=== PATIENT | male | born 1995 | race Two or more races ===

== ENCOUNTER 2019-06-05 17:19 | Inpatient (IN) | payer MEDICAID ==
[~2019-06-05] VITALS: Ht 175.3 cm; Wt 98.4 kg
--- NOTE | 2019-06-05 17:20 | NUR ---
ED Nurse Note: patient brought into ED from home by ambulance RA 69 due to unknown drug overdose. per ems, narcan was given IM 2mg and another 2mg of Narcan was given IVP. patient responded. upon arrival patient's pupils were very dilated, patient on a director cardiac, patient unable to follow any directions at this time. patient placed on a 15L nonrebreather.
[2019-06-05 17:47] VITALS: BP 104/53
[2019-06-05] MEDS ORDERED: Naloxone 1mg/ml 2ml IVP ONE (18:00)
[2019-06-05 18:20] LABS: EOSINOPHILS % (AUTO) 0.8 % (0.0-3.0); HEMATOCRIT 50.5 % (42.0-52.0); HEMOGLOBIN 15.8 G/DL (14.2-18.0); LYMPHOCYTES % (AUTO) 31.3 % (20.0-45.0); MEAN CORPUSCULAR VOLUME 94 FL (80-99); MONOCYTES % (AUTO) 2.2 % (1.0-10.0); NEUTROPHILS % (AUTO) 64.7 % (45.0-75.0); PLATELET COUNT 290 K/UL (150-450); RED BLOOD COUNT 5.39 M/UL (4.70-6.10); RED CELL DISTRIBUTION WIDTH 12.6 % (11.6-14.8); WHITE BLOOD COUNT 13.1 K/UL (4.8-10.8)
[2019-06-05 18:32] LABS: ANION GAP 19 mmol/L (5-15); BLOOD UREA NITROGEN 17 mg/dL (7-18); CALCIUM 8.3 MG/DL (8.5-10.1); CARBON DIOXIDE 17 MMOL/L (21-32); CHLORIDE 104 MMOL/L (98-107); CREATININE 1.4 MG/DL (0.55-1.30); POTASSIUM 3.5 MMOL/L (3.5-5.1); SODIUM 140 MMOL/L (136-145)
[2019-06-05 18:46] LABS: ALANINE AMINOTRANSFERASE 114 U/L (12-78); ALBUMIN 3.6 G/DL (3.4-5.0); ALKALINE PHOSPHATASE 96 U/L (46-116); ASPARTATE AMINO TRANSFERASE 83 U/L (15-37); BILIRUBIN,TOTAL 0.5 MG/DL (0.2-1.0)
--- NOTE | 2019-06-05 19:06 | NUR ---
HAND-OFF: Report given to Yael JIN.
[2019-06-05 19:08] VITALS: BP 138/118
--- NOTE | 2019-06-05 19:08 | NUR ---
ED Nurse Note: mother at bedside. patient's O2 sat is 97% on 15L nonrebreather.
[2019-06-05 19:21] VITALS: BP 142/128
--- NOTE | 2019-06-05 19:22 | NUR ---
ED Nurse Note: Mother and sister at bedside.
--- NOTE | 2019-06-05 19:22 | NUR ---
ED Nurse Note: Reassessed patient, patient stable no acute distress at this time.
--- NOTE | 2019-06-05 19:33 | NUR ---
ED Nurse Note: Reassesed patient, patient reported using Fentanyl unknown dose intranasal. Denies SI/HI.
[2019-06-05 20:22] VITALS: BP 128/71
--- NOTE | 2019-06-05 21:20 | NUR ---
ED Nurse Note: Per RT, bipap settings 12/5 FiO2 at 40%
--- NOTE | 2019-06-05 21:21 | Diagnostic Imaging Report ---
Indication: Shortness of breath Technique: One view of the chest Comparison: none Findings: There is diffuse bilateral mostly airspace disease and a nodular pattern bilaterally. The pleural spaces are grossly clear. The heart size is normal. The bones are unremarkable Impression: Diffuse pulmonary airspace disease in a nodular pattern. Most likely represents pneumonia, pulmonary edema also possible. This agrees with the preliminary interpretation provided overnight by [facility] teleradiology service.
--- NOTE | 2019-06-05 21:27 | NUR ---
RESPIRATORY NOTE: Pt in ED placed on BiPAP post ABG per MD Marbin. Pt came in for overdose, on a 100% NRB. Pt placed on BiPAP 03/30, backup rate 14, 100%. Pt on a Facial mask, skin intact, no redness/breakdowns noted. Foam tape applied on pt's nosebridge/cheeks/chin to prevent mask irritations. Pt is lethargic/drowsy most of the time, arousable & responds/follows commands. B/S beverly. rales, nonproductive cough. Family present at bedside. BiPAP plugged into red outlet, alarms on & audible. Pt tolerating well. Will continue to monitor pt.
--- NOTE | 2019-06-05 21:29 | NUR ---
ED Nurse Note: Zithromax and Zosyn unknown compatibility, Zosyn started and Zithromax held until Zosyn is completed.
[2019-06-05] MEDS ORDERED: Azithromycin 500 MG in NS 275 ML IV ONE (21:30)
[2019-06-05] MEDS ORDERED: Piperacillin/Tazobactam 3.375 GM in NS 110 ML IVPB ONE (21:30)
--- NOTE | 2019-06-05 21:52 | NUR ---
ED Nurse Note: Lactic redrawn and sent to lab.
--- NOTE | 2019-06-05 22:06 | Emergency Room Report ---
History of Present Illness General Chief Complaint: Overdose Source: Patient Present Illness HPI 23-year-old male presents ED status post overdose. Family called 911. States that he took multiple drugs today. Patient unable to tell us what he took. Was given Narcan by EMS. Is slightly more awake but lethargic. Is unable to provide any additional history at this time. Family denies SI. Denies psychiatric history. No other aggravating relieving factors. Denies any other associated symptoms Allergies: Coded Allergies: No Known Allergies (Unverified , 06/05/19) Patient History Past Medical History: none Past Surgical History: none Pertinent Family History: none Social History: Reports: drug use; Denies: smoking, alcohol use Immunizations: UTD Reviewed Nursing Documentation: PMH: Agreed; PSxH: Agreed Nursing Documentation-PMH Past Medical History: No History, Except For Review of Systems All Other Systems: limited Physical Exam Vital Signs Date Time Temp Pulse Resp B/P (MAP) Pulse Ox O2 Delivery O2 Flow Rate FiO2 06/05/19 17:15 110 16 144/81 (102) 98 Room Air 06/05/19 17:47 15.0 06/05/19 21:25 40 Sp02 EP Interpretation: reviewed, normal General Appearance: mild distress, lethargic Head: normocephalic Eyes: bilateral eye normal inspection, bilateral eye PERRL ENT: hearing grossly normal, normal pharynx, no angioedema, normal voice Neck: full range of motion, supple/symm/no masses Respiratory: crackles Cardiovascular #1: no edema, tachycardia Gastrointestinal: normal bowel sounds, non tender, soft, non-distended, no guarding, no rebound Rectal: deferred Genitourinary: no CVA tenderness Musculoskeletal: normal inspection Neurologic: other - lethargic Psychiatric: other - lethargic Skin: other - see nursing skin notes Lymphatic: normal inspection Procedures Critical Care Time Critical Care Time i. I feel this is a highly complex case requiring extensive working including EKG/Rhythm strip, Xray/CT/US, Blood/urine lab work, repeat exams while in ED, and administration of strong opiates/narcotics for pain control, admission to hospital or close patient follow up. Total time: 60 min bedside evaluation and treatment excludes procedures (EKG). Reason for critical care: Pulmonary edema, respiratory distress, overdose Possible complications: hypotension, hypertension, [place], shock, arrhythmias, metabolic acidosis, end organ damage, respiratory failure. Interventions: Labs, EKG, chest x-ray, IV fluids, Narcan, ABG, BiPAP Course: Patient presenting status post overdose. Drug screen positive for cocaine and THC. Given Narcan which improved respiratory status and O2 sats. Patient remains tachypneic. Crackles on exam. Chest x-ray shows pulmonary edema. ABG shows no hypercapnia or hypoxia. Placed on BiPAP. Respiratory status improving. Consultations: nursing staff, EMS, family Performed by: Dr Zazueta Tolerated well condition = critical j. because of unstable vital signs this patient had a condition that could potentially threaten life or limb. I feel this is a critical patient who required my full attention while patient was considered critical. Total Critical Care Time excluding procedures was greater than 60 minutes Medical Decision Making Diagnostic Impression: Primary Impression: Drug overdose Qualified Codes: T50.901A - Poisoning by unspecified drugs, medicaments and biological substances, accidental (unintentional), initial encounter Additional Impression: Pulmonary edema Qualified Codes: J81.0 - Acute pulmonary edema ER Course Hospital Course 23-year-old male presents to ED with altered mental status. overdose on medications Differential diagnoses include: Alcohol intoxication, psychosis, drug abuse Clinical course She placed on stretcher. On child monitor. After initial history and physical ordered labs, IV fluids, EKG, CXR, narcan Labs reviewed-electrolytes okay, noted leukocytosis, hemoglobin/hematocrit stable, Utox + cocaine and THC Patient given Narcan which improved respiratory status temporarily EKG - sinus tachycardia no acute ischemic changes interpreted by me CXR - pulmonary edema Remains tachypneic, lethargic. Started on BiPAP. Broad-spectrum antibiotics given. case discussed with Dr. Sauer and he agreed to accept the patient to his service for further care and support i. I feel this is a highly complex case requiring extensive working including EKG/Rhythm strip, Xray/CT/US, Blood/urine lab work, repeat exams while in ED, and administration of strong opiates/narcotics for pain control, admission to hospital or close patient follow up. Diagnosis - drug overdose, pulmonary edema Admitted to SDU in critical condition Labs Test 06/05/19 17:30 06/05/19 20:44 06/05/19 21:00 White Blood Count 13.1 K/UL (4.8-10.8) Red Blood Count 5.39 M/UL (4.70-6.10) Hemoglobin 15.8 G/DL (14.2-18.0) Hematocrit 50.5 % (42.0-52.0) Mean Corpuscular Volume 94 FL (80-99) Mean Corpuscular Hemoglobin 29.3 PG (27.0-31.0) Mean Corpuscular Hemoglobin Concent 31.3 G/DL (32.0-36.0) Red Cell Distribution Width 12.6 % (11.6-14.8) Platelet Count 290 K/UL (150-450) Mean Platelet Volume 9.4 FL (6.5-10.1) Neutrophils (%) (Auto) 64.7 % (45.0-75.0) Lymphocytes (%) (Auto) 31.3 % (20.0-45.0) Monocytes (%) (Auto) 2.2 % (1.0-10.0) Eosinophils (%) (Auto) 0.8 % (0.0-3.0) Basophils (%) (Auto) 1.0 % (0.0-2.0) Sodium Level 140 MMOL/L (136-145) Potassium Level 3.5 MMOL/L (3.5-5.1) Chloride Level 104 MMOL/L (98-107) Carbon Dioxide Level 17 MMOL/L (21-32) Anion Gap 19 mmol/L (5-15) Blood Urea Nitrogen 17 mg/dL (7-18) Creatinine 1.4 MG/DL (0.55-1.30) Estimat Glomerular Filtration Rate > 60 mL/min (>60) Glucose Level 254 MG/DL (74-106) Calcium Level 8.3 MG/DL (8.5-10.1) Total Bilirubin 0.5 MG/DL (0.2-1.0) Aspartate Amino Transf (AST/SGOT) 83 U/L (15-37) Alanine Aminotransferase (ALT/SGPT) 114 U/L (12-78) Alkaline Phosphatase 96 U/L (46-116) Total Protein 7.2 G/DL (6.4-8.2) Albumin 3.6 G/DL (3.4-5.0) Globulin 3.6 g/dL Albumin/Globulin Ratio 1.0 (1.0-2.7) Salicylates Level 1.4 ug/mL (2.8-20) Urine Opiates Screen Negative (NEGATIVE) Acetaminophen Level < 2 MCG/ML (10-30) Urine Barbiturates Screen Negative (NEGATIVE) Phencyclidine (PCP) Screen Negative (NEGATIVE) Urine Amphetamines Screen Negative (NEGATIVE) Urine Benzodiazepines Screen Negative (NEGATIVE) Urine Cocaine Screen Positive (NEGATIVE) Urine Marijuana (THC) Screen Positive (NEGATIVE) Serum Alcohol < 3 mg/dL Arterial Blood pH 7.293 (7.350-7.450) Arterial Blood Partial Pressure CO2 42.0 mmHg (35.0-45.0) Arterial Blood Partial Pressure O2 134.9 mmHg (75.0-100.0) Arterial Blood HCO3 19.9 mmol/L (22.0-26.0) Arterial Blood Oxygen Saturation 98.4 % (95-100) Arterial Blood Base Excess -6.4 (-2-2) Todd Test Positive Lactic Acid Level 2.30 mmol/L (0.4-2.0) Pro-B-Type Natriuretic Peptide 57 pg/mL (0-125) EKG Diagnostic Results Rate: tachycardiac Rhythm: NSR ST Segments: no acute changes ASA given to the pt in ED: No Rhythm Strip Diag. Results EP Interpretation: yes Rhythm: NSR, no PVC's, no ectopy Chest X-Ray Diagnostic Results Chest X-Ray Diagnostic Results : Chest X-Ray Ordered: Yes # of Views/Limited/Complete: 1 View Indication: Shortness of Breath EP Interpretation: Yes Interpretation: no pneumothorax, other - pulmonary edema Impression: Other - pulmonary edema Electronically Signed by: Electronically signed by Cullen Zazueta MD Last Vital Signs Date Time Temp Pulse Resp B/P (MAP) Pulse Ox O2 Delivery O2 Flow Rate FiO2 06/05/19 21:25 83 29 100 40 06/05/19 20:22 128/71 Non-Rebreather 15.0 Status: improved Disposition: ADMITTED INPATIENT Condition: Serious Referrals: NOT CHOSEN YASMIN/,REFERRING (PCP) Cullen Zazueta MD Jun 05, 2019 22:06
--- NOTE | 2019-06-05 22:30 | NUR ---
NURSE NOTES: Received report from DAVIN Liz. Patient is on his way up to the floor.
--- NOTE | 2019-06-05 22:34 | NUR ---
ED Nurse Note: Report given to DAVIN Tafoya in SDU.
--- NOTE | 2019-06-05 22:45 | NUR ---
NURSE NOTES: Received patient from ED. Patient is aaox4, vss, with no acute distress. laboratory monitor on, suction at bedside, Bipap 12/5 Fio2 of 40% and IV site on right forearm and left AC. Skin is intact. Family members at bedside. Patient is short of breath while hyperventilating, although he can control his breathing for a short period. Bed at its lowest position, call light in reach and x3 bed rails are up. Will continue to monitor.
--- NOTE | 2019-06-05 22:45 | NUR ---
ED Nurse Note: Patient transported via gurney on ACLS protocol and customs verifier accompanied by 1 RN, RT, and automatic equipment technician in stable condition.
[2019-06-06] VITALS: BP 130/69
--- NOTE | 2019-06-06 02:16 | NUR ---
NURSE NOTES: Patient is sleeping with no acute distress. Mother and sister at bedside.
[2019-06-06 04:00] VITALS: BP 123/75
[2019-06-06 05:35] LABS: HEMATOCRIT 42.2 % (42.0-52.0); HEMOGLOBIN 14.9 G/DL (14.2-18.0); MEAN CORPUSCULAR VOLUME 87 FL (80-99); PLATELET COUNT 191 K/UL (150-450); RED BLOOD COUNT 4.85 M/UL (4.70-6.10); RED CELL DISTRIBUTION WIDTH 11.3 % (11.6-14.8); WHITE BLOOD COUNT 14.6 K/UL (4.8-10.8)
[2019-06-06 05:36] LABS: ANION GAP 11 mmol/L (5-15); BLOOD UREA NITROGEN 12 mg/dL (7-18); CALCIUM 8.5 MG/DL (8.5-10.1); CARBON DIOXIDE 22 MMOL/L (21-32); CHLORIDE 107 MMOL/L (98-107); CREATININE 0.9 MG/DL (0.55-1.30); POTASSIUM 4.1 MMOL/L (3.5-5.1); SODIUM 140 MMOL/L (136-145)
[2019-06-06] MEDS: Piperacillin/Tazobactam 3.375 GM in NS 110 ML IVPB SCH ×3 (05:59→22:09)
--- NOTE | 2019-06-06 07:19 | NUR ---
RESPIRATORY NOTE: received pt on bipap with current settings. pt using partial facial mask with foam barrier in place. no visible redness or skin irritation while on bipap. pt able to wake when shaken and able to follow commands. made know that ABG will be taken. family/friend at bedside. will cont to monitor.
--- NOTE | 2019-06-06 07:20 | NUR ---
NURSE NOTES: RECEIVED BED SIDE REPORT FROM EVELIN JIN STAFF OF POWER MACHINE OPERATOR. RECEIVED PT WITH HOB ELEVATED 45 DEGREE ,USING BIPAP 12/5 ,40% FIO2, O2 SAT 98%. ABG ,S DONE PER M.D ORDERS. ABG,S RESULT REPORTED TO DR ORDOÑEZ ,PT PLACED ON O2 @ 2 L/MINTS VIA N/C PER M.D ORDERS. PT FAMILY AT BED SIDE SEEMS VERY SUPPORTIVE. FULL BODY ASSESSMENT DONE.H.L ON RT FA G# 18 INTACT AND H.L ON LT AC G# 20 INTACT.NO ACUTE DISTRESS NOTED AT THIS TIME . WILL CONT TO MONITOR.
--- NOTE | 2019-06-06 07:33 | NUR ---
HAND-OFF: Report given to DAVIN Rice.
[2019-06-06 08:00] VITALS: BP 128/74
--- NOTE | 2019-06-06 09:12 | NUR ---
RADIOLOGY DEPT., CHEST X-RAY DONE.-P.DYE
[2019-06-06] MEDS: Heparin 5000 units/ml inj SUBQ SCH ×2 (09:34→21:26)
--- NOTE | 2019-06-06 10:30 | Diagnostic Imaging Report ---
Indication: Shortness of breath Technique: One view of the chest Comparison: 06/05/2019 Findings: Interim slight worsening of bilateral diffuse interstitial and airspace disease, with increasingly dense consolidation diffusely bilaterally. The heart remains upper limits of normal in size. The pleural spaces remain clear Impression: Interim slight worsening of bilateral diffuse infiltrates, over one day
--- NOTE | 2019-06-06 11:41 | NUR ---
METAL POLISHER NOTE SW met w/ pt to discuss substance abuse issue. Pt presents as A&O4x and cooperative. Pt resides w/ his family at [address], [place] [address]. Pt is single, never and has no children. Pt works as a product/device technologist. Pt started abusing substances(Fentanyl and THC) since December 2018. Pt is willing to cease substance abuse but pt is not interested in inpatient/outpatient rehab program. SW encouraged pt to receive substance abuse rehab resource in case if he reconsiders his options. Pt verbalized understanding. Emergency contacts provided: Fely Cortez (mother) [phone] and Vero Collins (sister) [phone]. Pt reports he receives sufficient family and friend support. Pt plans to return home upon DC. Pt denies hx of mental illness but he is willing to receive mental health counseling upon DC. Pt denies hx of SA and current SI/HI. SW provided a substance abuse rehab resource and mental health resource including MHCs and hotlines. Pt does not share any other concern/issue/needs at this time. SW to F/U as needed. Signed: 06/06/19 at 1149 by TYE ANTHONY <Co-Signature Required>
--- NOTE | 2019-06-06 11:50 | NUR ---
NURSE NOTES: 2ND ABG,S DONE.PLACED A TELEPHONE CALL TO DR ORDOÑEZ AND REPORTED ABG,S RESULTS.NO NEW ORDERS NOTED AT THIS TIME. WILL CONT TO MONITOR.
[2019-06-06 12:00] VITALS: BP 119/69
--- NOTE | 2019-06-06 12:58 | NUR ---
RESPIRATORY NOTE: pt has been placed on 3L NC. no signs of resp distress noted. pt is awake and alert and responsive. will cont to monitor.
--- NOTE | 2019-06-06 13:11 | NUR ---
CASE MANAGEMENT: INITIAL REVIEW 23 YO M MINA FROM HOME CC: DRUG OVERDOSE PMHx: NONE STATED SI:OVERDOSE. SOB. HR 110 RR 16 B/P 144/81 SATS 98% ON RA LABS: WBC 13.1 CO2 17 CR 1.4 GLU 254 CA 254 CA 8.3 AST 83 ALT 114 ABGs PH 7.293 PO2 134.9 HCO3 19.9 BE -6.4 UTOX (+COCAINE. THC) IS: NS BOLUS X2 NARCAN IV X1 EKG Rate: tachycardiac Rhythm: NSR ST Segments: no acute changes CXR Impression: Other - pulmonary edema PATIENT ADMITTED TO SDU 06/05/2019 @ 3727 DCP: PATIENT TO BE DISCHARGED TO HOME ONCE MEDICALLY CLEARED. PLAN OF CARE: CXR 06/06/2019 SI:OVERDOSE. SOB. T 99.8 HR 78 RR 37 B/P 123/75 SATS 94% ON BIPAP FIO2 40% LABS: WBC 14.6 ABGs PCO2 31.8 PO2 70.2 HCO3 20.4 O2 SAT 94.6 BE -2.8 IS: NS BOLUS X2 NARCAN IV X1 EKG Rate: tachycardiac Rhythm: NSR ST Segments: no acute changes CXR Impression: Interim slight worsening of bilateral diffuse infiltrates, over one day SDU DCP: PATIENT TO BE DISCHARGED TO HOME ONCE MEDICALLY CLEARED. PLAN OF CARE: CXR Addendum: 06/06/19 at 1329 by Mary Bennett CM INTERQUAL MET
[2019-06-06 16:00] VITALS: BP 126/72
--- NOTE | 2019-06-06 16:45 | History and Physical Report ---
DATE OF ADMISSION: 06/05/2019 REASON FOR ADMISSION: Pulmonary edema, overdose attempt. HISTORY: This is a 23-year-old male who presents for multiple drug overdose with associated fentanyl. The patient noted to have pulmonary edema on x-ray and was placed on BiPAP. Overnight, the patient overall improved with reduced shortness of breath. The patient admits that he apparently was suicidal. The patient's family is at the bedside at present. The patient denies any significant cardiopulmonary disease in the past. PAST MEDICAL HISTORY: None. MEDICATIONS: Reviewed and reconciled. ALLERGIES: Reviewed and reconciled. PAST SURGICAL HISTORY: Negative as well. REVIEW OF SYSTEMS: All 10 points reviewed and otherwise negative. PHYSICAL EXAMINATION: GENERAL: Well-developed male. Overall, the patient appears to be mildly tachypneic. VITAL SIGNS: Temperature is 99.8, pulse 78, respiratory rate is in the 30s, blood pressure 133/75, the patient's oxygen saturation 97% at present. HEENT: Negative. NECK: Supple. LUNGS: With scattered rhonchi. Moderate air entry. CARDIAC: Regular rate and rhythm. ABDOMEN: Soft, nontender, nondistended. EXTREMITIES: No edema. LABORATORY DATA: Reviewed. White count 14.6. Arterial blood gases this morning 7.34/33/88. White count 18. Chemistries noted and reviewed, essentially negative. Lactic acid 2.3. IMPRESSION: Possible pulmonary edema versus aspiration pneumonitis, suicidal attempt, and noted overdose. RECOMMENDATION: IV Lasix. Empiric antibiotics. ID evaluation. Cardiology evaluation. Echocardiogram. Close monitoring of the patient's cardiac and cardiopulmonary status.and BiPAP if the patient deteriorates further. We will follow clinically for changes and interventions. The patient remains guarded. We will obtain psychiatric evaluation as well to follow up on psychiatric status and clearance. Chris Sauer M.D. DR: ANGELA JOB#: [id number] CC: ALLEN
--- NOTE | 2019-06-06 19:20 | NUR ---
HAND-OFF: Report given to .GABRIELA JIN.
--- NOTE | 2019-06-06 19:25 | NUR ---
NURSE NOTES: Report received from IVIS PEÑALOZA RN, using SBAR. Patient is awake oriented. on NC 3L with no respiratory distress noted.Denies any chest pain or discomfort at this time.SR on telemetry monitor. vs stable. Afebrile.using urinal with clear/yellow urine.IV to LAC 20G, RFA 18G intact.Family at bedside.call light in reach and bed alarm on. will continue to monitor patient closely.
[2019-06-06 20:00] VITALS: BP 130/83
[2019-06-07] VITALS: BP 129/60
--- NOTE | 2019-06-07 01:50 | NUR ---
NURSE NOTES: Report received from DAVIN Felix. Patient is observed sleeping in bed, no signs or symptoms of pain noted upon assessment. Pt remains SR on cardiac technician with a HR of 61 noted; no s/sx of cardiac distress noted. VS remain stable. Pt is currently on 3L NC with no s/sx of respiratory distress noted. Bilateral rhonchi noted upon auscultation. Pt is continent and able to use urinal. Pt remains clean and dry. Left AC 20g and Right FA 18g IV catheters noted which remain asymptomatic, intact and patent. Zosyn currently infusing as ordered. Diagnostics and orders reviewed. Sister remains present at bedside with patient. Pt remains resting in bed; bed remains in the lowest position with safety wheels engaged, call light within reach, side rails up x3 and bed alarm activated. Will continue plan of care. Will continue to monitor.
--- NOTE | 2019-06-07 01:50 | NUR ---
NURSE NOTES: report given to RONDA RN, using SBAR. Patient is asleep with no distress.
[2019-06-07 04:00] VITALS: BP 128/72
[2019-06-07] MEDS: Piperacillin/Tazobactam 3.375 GM in NS 110 ML IVPB SCH ×3 (05:13→21:39)
--- NOTE | 2019-06-07 07:15 | NUR ---
HAND-OFF: Report given to DAVIN Rangel. Pt remains stable at this time.
--- NOTE | 2019-06-07 07:15 | NUR ---
NURSE NOTES: Received report DAVIN Ac patient asleep,family at bedside,on oxygen,breathing easy Addendum: 06/07/19 at 0824 by Claire Carranza RN Above notes documented by DAVIN Downing
--- NOTE | 2019-06-07 08:56 | General Progress Note ---
Assessment/Plan Assessment/Plan: IMPRESSION: Possible pulmonary edema versus aspiration pneumonitis, suicidal attempt, and noted overdose. PLAN psych dr weaver called yesterday follow up cxr and o2 needs care as is optimize ID called empiric antibiotics impression, plan, and exam edited and reviewed in detail care discussed with RN Subjective Allergies: Coded Allergies: No Known Allergies (Unverified , 06/05/19) Subjective stable overnight Objective Last 24 Hour Vital Signs Date Time Temp Pulse Resp B/P (MAP) Pulse Ox O2 Delivery O2 Flow Rate FiO2 06/07/19 04:00 3.0 06/07/19 04:00 98.2 81 24 128/72 (90) 94 06/07/19 04:00 Nasal Cannula 3.0 06/07/19 03:43 60 06/07/19 00:27 61 06/07/19 00:00 Nasal Cannula 3.0 06/07/19 00:00 98.8 64 24 129/60 (83) 97 06/07/19 00:00 3.0 06/06/19 20:00 Nasal Cannula 2.0 06/06/19 20:00 97.9 77 24 130/83 (99) 97 06/06/19 20:00 102 06/06/19 17:07 84 33 96 40 06/06/19 16:00 62 06/06/19 16:00 3.0 06/06/19 16:00 Bi-pap 06/06/19 16:00 98.8 71 20 126/72 (90) 98 06/06/19 15:24 69 36 97 40 06/06/19 12:00 3.0 06/06/19 12:00 97.8 89 22 119/69 (86) 95 06/06/19 12:00 82 06/06/19 12:00 Bi-pap Intake and Output 06/06/19 06/07/19 19:00 07:00 Intake Total 1642.5 ml 777.53 ml Output Total 1100 ml 500 ml Balance 542.5 ml 277.53 ml Intake Oral 1450 ml 640 ml IV Total 192.5 ml 137.53 ml Output Urine Total 1100 ml 500 ml # Voids 1 # Bowel Movements 3 4 Laboratory Tests 06/06/19 11:50: Arterial Blood pH 7.426, Arterial Blood Partial Pressure CO2 31.8L, Arterial Blood Partial Pressure O2 70.2L, Arterial Blood HCO3 20.4L, Arterial Blood Oxygen Saturation 94.6L, Arterial Blood Base Excess -2.8L, Todd Test Positive Height (Feet): 5 Height (Inches): 9.00 Weight (Pounds): 217 Objective WDWN NAD reduced breath sounds bilaterally without rhonchi or wheeze [id number] without MRG NABS nontender no HSM no CCE nonfocal Chris Sauer MD Jun 07, 2019 08:56
[2019-06-07 09:00] VITALS: BP 126/61
--- NOTE | 2019-06-07 09:20 | NUR ---
RESPIRATORY NOTE: ABG drawn and results are entered in EMR. DAVIN Rangel notified.
[2019-06-07] MEDS: Heparin 5000 units/ml inj SUBQ SCH ×2 (09:27→21:41)
--- NOTE | 2019-06-07 11:00 | NUR ---
NURSE NOTES: Pt received from roberto Rangel RN in stable condition without cardiopulmonary distress. Pt is awake in bed, AAOx4, accompanied by mother, PERRLA +, SR to study abroad coordinator. Pt is on 3L O2 via NC. Pt denies SOB and pain at this time. No skin alterations noted. Pt has a LAC 20g IV and RFA 18g IV saline locked. Bed is in lowest position, alarm on, side rails up x 3, call light within reach. Will continue to monitor.
--- NOTE | 2019-06-07 11:04 | NUR ---
RADIOLOGY DEPT., CHEST X-RAY DONE.-P.DYE
[2019-06-07 12:00] VITALS: BP 118/60
--- NOTE | 2019-06-07 13:10 | Diagnostic Imaging Report ---
Indication: Dyspnea Comparison: 06/06/2019 A single view chest radiograph was obtained. Findings: Patchy airspace opacities noted bilaterally. The heart remains normal in size. Bones are unremarkable. IMPRESSION: Patchy airspace disease without significant change. Findings are probably inflammatory/infectious. Correlate clinically
--- NOTE | 2019-06-07 14:00 | CDS Physician Query ---
Clarification is required for compliance, coding accuracy, and to reflect severity of illness for this patient Dear Dr. Chris Sauer M.D. Date: 06/07/2019 Glass Engraver/CDS Name: Armond Hanson This is a 23-year-old male who presents for multiple drug overdose with associated fentanyl. The patient noted to have pulmonary edema on x-ray and was placed on BiPAP. Overnight, the patient overall improved with reduced shortness of breath. The patient admits that he apparently was suicidal. The patient's family is at the bedside at present. The patient denies any significant cardiopulmonary disease in the past. "Altered Mental Status" documented in ED notes Please indicate the nature and chronicity of the condition below: [] Metabolic Encephalopathy [] Toxic Encephalopathy [x] Toxic - Metabolic Encephalopathy [] Encephalopathy, Other [] Dementia with Delirium [] Hypoxic encephalopathy [] Posterior reversible encephalopathy syndrome [] Other: [] Not Applicable Present on Admission: [x] Yes [] No [] Clinically Undetermined Physician signature Date Please also document in your Progress Notes and/or Discharge Summary and indicate if the condition was present on admission. MTDD
--- NOTE | 2019-06-07 14:58 | NUR ---
COLLECTION SYSTEMS MODELERTRANSITION ASSISTANT SI: OVERDOSE,SOB T. 98.2 HR 81 RR 24 B/P 126/68 NC 3L O2 SAT @ 98% IS: LASIX IV ZOSYN IV HEPARIN SUBC STEP DOWN STATUS
[2019-06-07 16:00] VITALS: BP 111/58
[2019-06-07] MEDS: Albuterol/Ipratropium 3ml neb HHN SCH (16:02)
--- NOTE | 2019-06-07 19:13 | NUR ---
HAND-OFF: Report given to roberto Felix RN. Pt in stable condition.
--- NOTE | 2019-06-07 19:30 | NUR ---
NURSE NOTES: NURSE NOTES: Report received from IRVIN JIN, using SBAR. Patient is awake oriented. on NC 3L with no respiratory distress noted.Denies any chest pain or discomfort at this time.SR on campus monitor. vs stable. Afebrile.using urinal with clear/yellow urine.IV to LAC 20G, RFA 18G intact.Family at bedside.call light in reach and bed alarm on. will continue to monitor patient closely.
[2019-06-07 20:00] VITALS: BP 134/68
[2019-06-08] VITALS (8 sets, daily range): BP systolic 118–141; BP diastolic 62–78
[2019-06-08] MEDS: Albuterol/Ipratropium 3ml neb HHN SCH ×5 (01:24→21:07)
--- NOTE | 2019-06-08 01:55 | NUR ---
TRANSFER TO FLOOR: Patient transferred to 3E ROOM 310-1. Belongings and medications given to RN. Family at bedside.
--- NOTE | 2019-06-08 02:00 | NUR ---
NURSE NOTES: Received pt from DAVIN Felix in stable condition,accompanied by mother and sister. Pt is awake in bed, AAOx4, verbally responsive and on 3L O2 via NC. Pt denies SOB and pain at this time. Assigned pt to the room near to nurses station for closer observation. Bed in lowest position, alarm on, side rails up x 3, call light within reach. Family at bed side.Will continue to monitor.
[2019-06-08] MEDS: Piperacillin/Tazobactam 3.375 GM in NS 110 ML IVPB SCH ×3 (05:20→21:06)
--- NOTE | 2019-06-08 07:40 | NUR ---
NURSE NOTES: Received call,Bayron from lab about lab result, blood culture positive for gram positive cocci. Endorsed to oncoming shift to follow up the lab result.
--- NOTE | 2019-06-08 08:07 | NUR ---
NURSE NOTES: Patine alert x4; on Nasal Cannula 3 Liters, no sing of distress and shortness of breath; Bipap machine at the bed side; IV Left AC 20G and Right For-Arm 20G Zosyn running; urinal within reach; side rails up x2, breaks engaged, bed at lowest position; call light within reach; will keep monitoring.
--- NOTE | 2019-06-08 08:09 | NUR ---
HAND-OFF: Report given to DAVIN Ortiz.Endorsed to follow up lab result.
--- NOTE | 2019-06-08 08:14 | NUR ---
NURSE NOTES: PM nurse received a call from microbiology regarding; blood culture gram positive Cocci; I communicated the result to MD Sauer; new order received and carried out as order given; will keep monitoring.
[2019-06-08] MEDS: Heparin 5000 units/ml inj SUBQ SCH ×2 (08:52→21:06)
--- NOTE | 2019-06-08 09:29 | General Progress Note ---
Assessment/Plan Assessment/Plan: IMPRESSION: Possible pulmonary edema versus aspiration pneumonitis, suicidal attempt, and noted overdose. + blood cultures PLAN psych dr weaver called 06/07 follow up cxr and o2 needs add vanco with +bcx optimize ID called empiric antibiotics recheck labs impression, plan, and exam edited and reviewed in detail care discussed with RN Subjective Allergies: Coded Allergies: No Known Allergies (Unverified , 06/05/19) Subjective care reviewed overnight Objective Last 24 Hour Vital Signs Date Time Temp Pulse Resp B/P (MAP) Pulse Ox O2 Delivery O2 Flow Rate FiO2 06/08/19 08:21 60 18 100 Nasal Cannula 2.0 28 57 18 95 06/08/19 08:00 97.8 59 20 128/62 (84) 96 06/08/19 04:00 98.2 64 18 138/72 (94) 99 06/08/19 01:24 61 18 100 Nasal Cannula 2.0 28 57 18 97 06/08/19 00:00 70 06/08/19 00:00 3.0 06/08/19 00:00 97.8 66 20 141/78 (99) 98 06/08/19 00:00 Nasal Cannula 3.0 Nasal Cannula 3.0 Nasal Cannula 3.0 06/07/19 20:00 3.0 06/07/19 20:00 99.4 66 20 134/68 (90) 98 06/07/19 20:00 92 06/07/19 20:00 Nasal Cannula 3.0 Nasal Cannula 3.0 Nasal Cannula 3.0 06/07/19 16:00 Nasal Cannula 3.0 Nasal Cannula 3.0 Nasal Cannula 3.0 06/07/19 16:00 3.0 06/07/19 16:00 73 06/07/19 16:00 98.1 61 20 111/58 (75) 98 06/07/19 15:54 87 18 99 85 18 96 06/07/19 12:00 Nasal Cannula 3.0 Nasal Cannula 3.0 Nasal Cannula 3.0 06/07/19 12:00 3.0 06/07/19 12:00 98.2 70 24 118/60 (79) 97 06/07/19 12:00 68 Intake and Output 06/07/19 06/08/19 19:00 07:00 Intake Total 1270.0 ml 120 ml Output Total 700 ml Balance 570.0 ml 120 ml Intake Oral 1160 ml 120 ml IV Total 110.0 ml Output Urine Total 700 ml # Voids 6 1 Height (Feet): 5 Height (Inches): 9.00 Weight (Pounds): 217 Objective WDWN NAD reduced breath sounds bilaterally without rhonchi or wheeze [id number] without MRG NABS nontender no HSM no CCE nonfocal Chris Sauer MD Jun 08, 2019 09:29
[2019-06-08] MEDS: Vancomycin 1gm in D5W 275ml IVPB SCH ×2 (10:24→17:41)
[2019-06-08 10:39] LABS: BASOPHILS % (AUTO) 0.5 % (0.0-2.0); EOSINOPHILS % (AUTO) 1.8 % (0.0-3.0); HEMATOCRIT 41.7 % (42.0-52.0); HEMOGLOBIN 14.4 G/DL (14.2-18.0); LYMPHOCYTES % (AUTO) 13.4 % (20.0-45.0); MEAN CORPUSCULAR VOLUME 87 FL (80-99); NEUTROPHILS % (AUTO) 78.3 % (45.0-75.0); PLATELET COUNT 232 K/UL (150-450); WHITE BLOOD COUNT 10.7 K/UL (4.8-10.8)
--- NOTE | 2019-06-08 19:09 | NUR ---
HAND-OFF: Report given to DAVIN Newman.
--- NOTE | 2019-06-08 20:04 | NUR ---
NURSE NOTES: Patient is in bed, awake, AOx4 and verbally responsive. Breathing on Nasal Cannula 3 Liters, no sing of respiratory distress noted. Family at bed side. Call light within reach. Side rails up x2. Bed at low and locked position; will keep monitoring and do frequent rounds.
[2019-06-09] MEDS: Vancomycin 1gm in D5W 275ml IVPB SCH ×2 (01:27→10:06)
[2019-06-09] MEDS: Albuterol/Ipratropium 3ml neb HHN SCH ×3 (01:54→13:00)
--- NOTE | 2019-06-09 03:00 | Consultation ---
DATE OF CONSULTATION: 06/08/2019 CONSULTING PHYSICIAN: Vamshi Regan M.D. HISTORY OF PRESENT ILLNESS: This is a 23-year-old male with a history of substance use disorder. he has been using off and on fentanyl and pills. The patient buys pills on the street. The patient stated that he has been having multiple psychosocial stressors including breakup and financial issues. The patient stated he is depressed and has anxiety; however, this was not a suicide attempt. His sister was present during the evaluation, and she also stated that the patient has been abusing drugs. The patient denied any suicidal or homicidal ideations. The patient was reluctant to take any psychotropic medication. Sleep and appetite are adequate. The patient was diagnosed with pneumonia and receiving treatments for pneumonia. PAST PSYCHIATRY HISTORY: Significant for depression and anxiety, he is not seeing a psychiatrist, never been in a mental health for the treatment. No psychiatric hospitalization. No suicide attempt. PAST MEDICAL HISTORY: Nonsignificant. ALLERGIES: No known drug allergies. SUBSTANCE ABUSE HISTORY: Includes fentanyl pills and other illicit drug use; however, his drug of choice is opioids. MENTAL STATUS EXAMINATION: The patient is alert and oriented times self, place, situation, and date. Mood was dysphoric. Affect is constricted, congruent with mood. Thought process, linear and goal oriented. Thought content, denies any suicidal or homicidal ideation. No delusions. No AVH. Cognition is intact. Insight and judgment are fair. ASSESSMENT: Brillion I Opiate dependence. Major depressive disorder. Brillion II Deferred. Brillion III Overdosed on fentanyl. Brillion IV Moderate. Brillion V 50. PLAN: 1. The patient is reluctant to be on any psychotropic medications. 2. Recommend the patient see a psychiatrist after discharge. 3. The patient is not an imminent danger to self or others and does not meet the criteria for inpatient level of care. 4. The patient should be discharged when medically cleared. 5. Discussed with Dr. Sauer. Vamshi Regan M.D. DR: RADHA JOB#: [id number] CC: ALLEN
[2019-06-09 04:00] VITALS: BP 118/72
[2019-06-09] MEDS: Piperacillin/Tazobactam 3.375 GM in NS 110 ML IVPB SCH (05:07)
--- NOTE | 2019-06-09 07:30 | NUR ---
NURSE NOTES: Report received from Seble JIN, rounds made. Patient sitting in high fowlers position in bed, receiving respiratory treatment. No distress. Alert, oriented x4, calm. Denies pain. Family at beside. IV antibiotic Zosyn infusing to LAC without difficulty. Call light in reach, bed in lowest position, will continue to monitor.
--- NOTE | 2019-06-09 07:51 | NUR ---
HAND-OFF: Report given to DAVIN Caceres.Pt is on stable condition.
[2019-06-09 08:00] VITALS: BP 130/66
[2019-06-09] MEDS: Heparin 5000 units/ml inj SUBQ SCH (10:05)
--- NOTE | 2019-06-09 10:59 | General Progress Note ---
Assessment/Plan Assessment/Plan: IMPRESSION: Possible pulmonary edema versus aspiration pneumonitis, suicidal attempt, and noted overdose. + blood cultures PLAN cleared by psych follow up cxr and o2 needs add vanco with +bcx; contaminant optimize ID called empiric antibiotics- dc and monitor recheck labs impression, plan, and exam edited and reviewed in detail care discussed with RN Subjective Allergies: Coded Allergies: No Known Allergies (Unverified , 06/05/19) Subjective care reviewed overnight cleared by psych Objective Last 24 Hour Vital Signs Date Time Temp Pulse Resp B/P (MAP) Pulse Ox O2 Delivery O2 Flow Rate FiO2 06/09/19 07:29 98 Nasal Cannula 2.0 28 06/09/19 07:29 64 18 100 Nasal Cannula 2.0 28 68 18 98 06/09/19 04:00 98.6 56 18 118/72 (87) 98 06/09/19 01:55 69 18 100 Nasal Cannula 2.0 28 68 18 100 06/08/19 23:56 98.4 58 18 118/70 (86) 98 06/08/19 21:20 98.6 60 18 126/69 (88) 97 06/08/19 21:13 97 Nasal Cannula 2.0 28 06/08/19 21:10 72 18 100 Nasal Cannula 2.0 28 71 18 98 06/08/19 21:00 Nasal Cannula 3.0 Nasal Cannula 3.0 Nasal Cannula 3.0 06/08/19 20:00 98.6 60 18 126/69 (88) 96 06/08/19 16:00 98.6 78 20 129/75 (93) 95 06/08/19 14:27 56 18 100 Nasal Cannula 2.0 28 53 18 97 06/08/19 12:00 97.6 59 20 118/65 (82) 98 Intake and Output 06/08/19 06/09/19 19:00 07:00 Intake Total 1621.124 ml 432.5 ml Output Total 850 ml Balance 1621.124 ml -417.5 ml Intake Oral 960 ml 350 ml IV Total 661.124 ml 82.5 ml Output Urine Total 850 ml # Bowel Movements 2 Laboratory Tests 06/09/19 09:20: Vancomycin Level Trough 7.7 Height (Feet): 5 Height (Inches): 9.00 Weight (Pounds): 217 Objective WDWN NAD reduced breath sounds bilaterally without rhonchi or wheeze [id number] without MRG NABS nontender no HSM no CCE nonfocal Chris Sauer MD Jun 09, 2019 10:59
[2019-06-09] MEDS ORDERED: Tubing IV Secondary IV ONE ×2 (11:02→13:42)
[2019-06-09] MEDS ORDERED: NS 275ml ONE (11:02)
--- NOTE | 2019-06-09 11:20 | NUR ---
NURSE NOTES: O2 1L NC off and Vancomycin antibiotic IVPB infusion stopped at this time, per Dr. Sauer. Order for CXR and plans for possible discharge. Encouraged patient to ambulate in halls with assistance and CDB every hour as tolerated, verbalized understanding.
[2019-06-09 12:00] VITALS: BP 131/72
--- NOTE | 2019-06-09 12:13 | Diagnostic Imaging Report ---
EXAM: XR Chest, 2 Views CLINICAL HISTORY: SOB TECHNIQUE: Frontal and lateral views of the chest. COMPARISON: Chest radiograph on 06/07/2019 FINDINGS: Hardware: None. Lungs/pleura: Decreased patchy hazy opacities. Interstitial opacities throughout the lungs. No pleural effusion or pneumothorax. Heart/mediastinum: Normal. No cardiomegaly. Soft tissues: Unremarkable. Bones: No acute fracture. Upper abdomen: Normal. IMPRESSION: There is opacity throughout the lungs may represent infectious/inflammatory process versus pulmonary vasculature congestion/interstitial edema. Decreased patchy hazy opacities compared to prior exam.
--- NOTE | 2019-06-09 13:30 | NUR ---
NURSE NOTES: Patient up ambulating in halls, no distress on RA. Sent down for CXR at 1140. Results and O2 sat 97% RA notified to Dr. Sauer. Discharge order received, provided pharmacy ([facility]) per family for antibiotic. Dr. Regan and Dr. Macario Almazan notified of discharge plan. Updated patient and family of discharge order, verbalized understanding.
[2019-06-09] MEDS ORDERED: NS 500ML ONE (13:42)
[2019-06-09] MEDS ORDERED: AUGMENTIN 500-1 EACH ORAL (13:55)
[2019-06-09 16:00] VITALS: BP 128/71
--- NOTE | 2019-06-09 16:15 | NUR ---
NURSE NOTES: Discharge instructions (aware he needs to schedule follow up appointment [facility] so he can get an order for an outpatient CXR and have it done in a week, Dr. Sauer number provided on discharge papers) and antibiotic order reviewed with patient and family, verbalized understanding. Heplock x2 discontinued, no active bleeding. All belongings and discharge instructions given to patient/family. Patient ambulated down to lobby with RN, in stable condition. Discharged home at 1615.
[2019-06-09] MEDS ORDERED: Vancomycin 1.5gm/NS Premix IVPB SCH (18:00)
--- NOTE | 2019-06-09 19:15 | Consultation ---
DATE OF CONSULTATION: 06/09/2019 INFECTIOUS DISEASES CONSULTATION This consult is for coverage of Dr. Herman. CONSULTING PHYSICIAN: Macario Almazan M.D. PRIMARY ATTENDING PHYSICIAN: Chris Sauer M.D. REASON FOR CONSULTATION: Aspiration pneumonia. HISTORY OF PRESENT ILLNESS: The patient is a 23-year-old male admitted on 06/05/2019 with coughing and productive sputum. He had multiple drug overdose with fentanyl, was found to have pulmonary edema or pneumonia, was put on BiPAP in the first night. PAST MEDICAL HISTORY: Likely depression. ALLERGIES: No known drug allergies. MEDICATIONS: Zosyn, was on vancomycin that was discontinued, heparin, albuterol ipratropium. SOCIAL HISTORY: Originally from [place]. 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 He has history of smoking, has history of marijuana and cocaine abuse. He states that he takes fentanyl pills. REVIEW OF SYSTEMS: He feels better. He still has cough, but generally is better. No nausea. No vomiting. No problem passing urine. PHYSICAL EXAMINATION: VITAL SIGNS: Temperature 98.6, pulse 54, and blood pressure 131/72. GENERAL APPEARANCE: No acute distress. Well developed. HEAD AND NECK: Spray conjunctivae. HEART: Normal rate. LUNGS: Clear. ABDOMEN: Soft and nontender. EXTREMITIES: No edema. LABORATORY AND DIAGNOSTIC DATA: Urine toxicology was positive for marijuana and cocaine at the time of admission. WBC at the time of admission was 13.1 and today is 10.7, hemoglobin 14.4, hematocrit 41.7, and platelets 230,000. Lactic acidosis of 2.3 at the time of admission that resolved. Sodium 140, potassium 4.1, chloride 107, bicarb 22, BUN 12, creatinine 0.9, glucose 105. AST is 83, ALT 114. Creatinine at the time of admission was 1.4. Chest x-ray shows opacity throughout the lungs, infectious process versus pulmonary vascular congestion. Blood culture x1 is positive for Staphylococcus coagulase negative. IMPRESSION: 1. Aspiration pneumonia. 2. Positive blood culture for coagulase-negative Staphylococcus, likely contamination. 3. Drug overdose. 4. Opiates, cocaine and marijuana abuse. 5. Acute renal failure, resolved. 6. Pulmonary edema. 7. Major depression disorder. RECOMMENDATION: 1. Continue Zosyn. 2. Check HIV status. At the end of my exam, I thank Dr. Sauer for involving me in the care of this patient. Macario Almazan M.D. DR: Wesley JOB#: [id number] CC:
--- NOTE | 2019-06-11 10:47 | Discharge Summary ---
Discharge Summary Discharge Summary _ DATE OF ADMISSION: 06/05/2019 DATE OF DISCHARGE: 06/09/2019 DISCHARGED BY: Dr. Sauer REASON FOR ADMISSION: 23 years old male presented for drug overdose. Patient received Narcan by EMS. Patient was more awake , but still lethargic and unable to provide any additional information. No psychiatric history. Patient required supplemental oxygen and was tachycardic. Laboratory work-up revealed mild leukocytosis WBC 13.1, stable hemoglobin , hematocrit and platelet count. Stable electrolytes. BUN 17, creatinine 1.4. Glucose 254. AST 83, ALT 114. Albumin 3.6. Urine toxicology screen was positive for cocaine and marijuana . Serum alcohol level was less than 3 . ABG revealed pH 7.29 ,PCO2 42, bicarb 19. Lactic acid was 2.3. ProBNP 57 . EKG revealed sinus rhythm , no acute ischemic changes . Chest x-ray revealed pulmonary edema. Patient subsequently was placed on the BiPAP and admitted for further management. CONSULTANTS ID specialist Dr. Almazan Psychiatrist Dr. Regan HOSPITAL COURSE: Patient admitted to monitored floor. Patient started on empiric antibiotics and IV Lasix. Echocardiogram demonstrated preserved ejection fraction 55 to 60% with no evidence of left ventricular hypertrophy. No evidence of pericardial effusion . No evidence of wall motion abnormality. Right ventricular systolic pressure of 11. Initial leukocytosis resolved . Blood culture initially revealed 1 out of 4 Staph coag negative, repeated blood culture on were negative. Per ID specialist , patient likely had pneumonitis versus aspiration pneumonia. Positive blood culture with coagulase-negative staphylococci were likely contamination. Zosyn was continued while in the hospital. Patient was provided with prescription for oral antibiotics upon discharge. Leukocytosis resolved , no fevers. Patient was followed-up with ABG. Patient was able to be weaned down to supplemental oxygen via nasal cannula and eventually to room air. Pulse oximetry stable on room air. Symptomatic treatment provided. Patient was counseled on abstinence from illicit street drugs. DVT prophylaxis provided. Psychiatrist seen and evaluated patient. Patient reported multiply psychosocial stressors, including break-up and financial issues . Patient reported being depressed and anxious , however this was not a suicide attempt. Patient was reluctant to be on any psychotropic medication. Patient was reminded to see a psychiatrist upon discharge. Patient was not at imminent danger to self or others and did not meet criteria for inpatient level of care. Psychiatrist cleared patient for discharge, when medically stable. Patient clinically stabilized and was ready for discharge. FINAL DIAGNOSES: Pulmonary edema Aspiration pneumonitis vs aspiration pneumonia Drug overdose Toxic metabolic encephalopathia Positive blood culture DISCHARGE MEDICATIONS: See Medication Reconciliation list. DISCHARGE INSTRUCTIONS: Patient was discharged home. Follow-up with a primary care provider in 1 week. I have been assigned to dictate discharge summary for this account. I was not involved in the patient's management. Faviola Carmichael NP Jun 11, 2019 10:47
== END 2019-06-09 16:15 | disposition home or self-care (01) | DRG 137 ==
LOC: EDBD 17:19 → EMR 17:40 → EDBEDREQ 21:07 → EDBEDREQSVC 21:07 → 2W 21:15 → EDBEDREQ 21:53 → 3E 06-08 01:55
PROC: 5A09357 Assistance with Respiratory Ventilation, Less than 24 Consecutive Hours, Continuous Positive Airway Pressure (ICD-10-PCS; principal; 2019-06-05)
DX: J69.0 Pneumonitis due to inhalation of food and vomit (principal); T40.4X2A Poisoning by other synthetic narcotics, intentional self-harm, initial encounter; G92 Toxic encephalopathy; F32.9 Major depressive disorder, single episode, unspecified; Z87.891 Personal history of nicotine dependence; F14.11 Cocaine abuse, in remission; F12.10 Cannabis abuse, uncomplicated; F11.10 Opioid abuse, uncomplicated; N17.9 Acute kidney failure, unspecified
CPT/HCPCS: 36415; 36600; 71045; 71046; 80048; 80053; 80202; 80307; 82803; 83605; 83880; 84484; 85025; 87040; 87181; 93005; 93306; 94640; 94660; 94664; 96361; 96365; 96368; 96375; 99291; G0480; J2310; J7030; J7620

== ENCOUNTER 2020-03-11 20:11 | Emergency (ER) | payer MEDICAID, OTHER ==
[~2020-03-11] VITALS: Ht 167.6 cm; Wt 86.2 kg
[~2020-03-11 20:11] MED LIST: AUGMENTIN 500-1 EACH ORAL
[2020-03-11 20:45] VITALS: BP 141/92
--- NOTE | 2020-03-11 20:45 | NUR ---
ED Nurse Note: Pt walk in from home here with c/o generalized rash and substance abuse with fentanyl, denies any other complaints or injuries, very small, red rash noted on bilat arms, no cp, no sob no other complaints.
[2020-03-11] MEDS ORDERED: PREDNISONE20 MG ORAL (21:09)
[2020-03-11] MEDS ORDERED: DIPHENHYDRAMINE25 M1 ORAL (21:09)
[2020-03-11 21:15] VITALS: BP 141/92
--- NOTE | 2020-03-11 21:15 | NUR ---
ER DISCHARGE NOTE: Patient is cleared to be discharged per ERMD, pt is aox4, on room air, with stable vital signs. pt was given dc and prescription instructions, pt was able to verbalize understanding, pt id band removed without complications. pt is able to ambulate with steady gait. pt took all belongings.
--- NOTE | 2020-03-14 08:53 | Emergency Room Report ---
History of Present Illness General Chief Complaint: Skin Rash/Abscess Source: Patient Present Illness HPI 24-year-old male presents rash. Notes generalized rash to his body x1 month. Thinks is an allergic reaction. He feels itchy. Denies any known food or drug allergies. Denies tongue swelling or throat swelling. Denies shortness of breath. Admits to recent methamphetamine use. No other aggravating relieving factors. Denies any other associated symptoms Allergies: Coded Allergies: No Known Allergies (Unverified , 06/05/19) COVID-19 Screening Contact w/high risk pt: No Experienced COVID-19 symptoms?: No COVID-19 Testing performed CORPORATE REAL ESTATE MANAGER: No Patient History Past Medical History: HTN Past Surgical History: none Pertinent Family History: none Social History: Denies: smoking, alcohol use, drug use Immunizations: UTD Reviewed Nursing Documentation: PMH: Agreed; PSxH: Agreed Nursing Documentation-PMH Hx Hypertension: Yes Review of Systems All Other Systems: negative except mentioned in HPI Physical Exam Vital Signs Date Time Temp Pulse Resp B/P (MAP) Pulse Ox O2 Delivery O2 Flow Rate FiO2 03/11/20 20:34 98.2 68 16 141/92 (108) 98 Room Air Sp02 EP Interpretation: reviewed, normal General Appearance: no apparent distress, alert, GCS 15, non-toxic Head: normocephalic, atraumatic Eyes: bilateral eye normal inspection, bilateral eye PERRL ENT: hearing grossly normal, normal pharynx, no angioedema, normal voice Neck: full range of motion, supple/symm/no masses Respiratory: chest non-tender, lungs clear, normal breath sounds, speaking full sentences Cardiovascular #1: regular rate, rhythm, no edema Cardiovascular #2: 2+ carotid (R), 2+ carotid (L), 2+ radial (R), 2+ radial (L), 2+ dorsalis pedis (R), 2+ dorsalis pedis (L) Gastrointestinal: normal bowel sounds, non tender, soft, non-distended, no guarding, no rebound Rectal: deferred Genitourinary: normal inspection, no CVA tenderness Musculoskeletal: back normal, normal range of motion, gait/station normal, non- tender Neurologic: alert, motor strength/tone normal, oriented x3, sensory intact, responsive, speech normal Psychiatric: judgement/insight normal, memory normal, mood/affect normal, no suicidal/homicidal ideation Reflexes: 3+ bicep (R), 3+ bicep (L), 3+ tricep (R), 3+ tricep (L), 3+ knee (R), 3+ knee (L) Skin: other - Diffuse urticaria to body Lymphatic: no adenopathy Medical Decision Making Diagnostic Impression: Primary Impression: Substance abuse Additional Impression: Rash and other nonspecific skin eruption ER Course Hospital Course 24-year-old male presents with a rash to body Differential diagnoses include: Cellulitis, dermatitis, insect bite, abscess Clinical course Patient placed on stretcher. After initial history, physical exam reveals a yo mercy male in no acute distress. On exam there is diffuse urticarial rash to body. No tongue swelling or throat swelling. No stridor. Lungs clear Discussed findings with patient. Given prednisone and Benadryl in ED. Unclear exact cause. Cannot identify specific food or medication. However methamphetamine could be a possible cause and I encourage patient to discontinue. Safe for discharge close outpatient follow-up . Diagnosis - substance abuse, rash stable and discharged to home with prescription for benedryl/prednisone. Instructed to followup with PMD. Instructed return to ED if symptoms recur or worsen Last Vital Signs Date Time Temp Pulse Resp B/P (MAP) Pulse Ox O2 Delivery O2 Flow Rate FiO2 03/11/20 21:15 98.2 16 141/92 98 Room Air 03/11/20 20:34 68 Status: improved Disposition: HOME, SELF-CARE Condition: Stable Scripts Prednisone* (PREDNISONE*) 20 Mg Tablet 40 MG ORAL DAILY, #10 TAB Prov: Cullen Zazueta MD 03/11/20 Diphenhydramine Hcl* (DIPHENHYDRAMINE HCL*) 25 Mg Capsule 25 MG ORAL Q6H PRN for Itching, #30 CAP 0 Refills Prov: Cullen Zazueta MD 03/11/20 Referrals: [facility] Patient Instructions: Toby, [id number] Cullen Zazueta MD Mar 14, 2020 08:52
== END 2020-03-11 21:15 | disposition home or self-care (01) ==
LOC: EMR 20:52
DX: F15.10 Other stimulant abuse, uncomplicated (principal); R21 Rash and other nonspecific skin eruption; I10 Essential (primary) hypertension
CPT/HCPCS: J7512; Z7502; 99282